=== PATIENT | female | born 1975 ===

== ENCOUNTER 2019-05-15 16:11 | Outpatient (CLI) | payer BC ==
[2019-05-15 17:19] LABS: INR 1.29 (0.87-1.13)
[2019-05-15 17:29] LABS: Albumin 3.3 g/dL (3.9-5); Bilirubin,Direct 1.2 mg/dL (0-0.2)
[2019-05-15 17:35] LABS: Hepatitis A Antibody IgM Non-Reactive (NonReactive); Hepatitis C Virus Antibody Non-Reactive (NonReactive)
--- NOTE | 2019-05-15 17:53 | Ultrasound Report ---
ULTRASOUND ABDOMEN, COMPLETE INDICATION: ELEVATED LFT. COMPARISON: No relevant prior imaging study available. FINDINGS: Pancreas: No significant abnormality. Abdominal Aorta: No significant abnormality. IVC: No significant abnormality. Liver: No significant abnormality. Normal hepatopedal blood flow in the main portal vein. Gallbladder: Layering stones in the dependent portion of the gallbladder without gallbladder distenti on or wall thickening. Bile ducts: No significant abnormality. Common bile duct measures 3 mm. Right kidney: 11 cm in length. No significant abnormality. Left kidney: 12.3 cm in length. No significant abnormality. Spleen: No significant abnormality. Free fluid: None. Additional Findings: None. IMPRESSION: 1. Cholelithiasis without evidence of acute cholecystitis. 2. No significant sonographic abnormality of the liver. Signer Name: Benjamin Pierre MD Signed: 05/15/2019 5:48 PM Workstation Name: [id number]
== END 2019-05-15 16:12 | disposition home or self-care (01) ==
LOC: US 16:11
PROVIDERS: ATTEND Internal Medicine Gastroenterology
DX: K80.20 Calculus of gallbladder without cholecystitis without obstruction (principal)
CPT/HCPCS: 36415; 76700; 80076; 82103; 82390; 82728; 85610; 86038; 86235; 86665; 86706; 86708; 86709; 86803